=== PATIENT | female | born 1950 | race Caucasian/White ===

== ENCOUNTER 2020-07-28 05:31 | Emergency (ER) | payer MEDICARE ==
[~2020-07-28] VITALS: Ht 170.2 cm; Wt 59.0 kg
[2020-07-28 05:39] VITALS: BP 133/89
--- NOTE | 2020-07-28 06:20 | NUR ---
Patient unable to give sufficient urine for UA, will try to obtain UA after fluids.
[2020-07-28 06:34] LABS: BASOPHILS % (AUTO) 0.4 % (0-1); EOSINOPHILS % (AUTO) 0.1 % (0-6); HEMOGLOBIN 13.6 g/dl (12.0-16.0); LYMPHOCYTES # (AUTO) 0.9 X10'3 (1.1-4.8); LYMPHOCYTES % (AUTO) 16.9 % (21-51); MEAN CORPUSCULAR HEMOGLOBIN 31.1 PG (27.0-31.0); MEAN CORPUSCULAR HGB CONC 33.9 g/dL (33.0-36.5); MEAN CORPUSCULAR VOLUME 91.9 FL (78-98); MEAN PLATELET VOLUME 9.1 FL (7.4-10.4); MONOCYTES # (AUTO) 0.3 X10'3 (0-0.9); MONOCYTES % (AUTO) 5.6 % (2-12); NEUTROPHILS # (AUTO) 4.1 X10'3 (1.8-7.7); PLATELET COUNT 167 X10'3 (140-440); RED BLOOD COUNT 4.36 X10'6 (4.20-5.60); RED CELL DISTRIBUTION WIDTH 13.4 % (11.5-14.5); WHITE BLOOD COUNT 5.4 X10'3 (4.5-11.0)
[2020-07-28 06:54] LABS: ALANINE AMINOTRANSFERASE 33 U/L (12-78); ALBUMIN 3.4 G/DL (3.4-5.0); ALBUMIN/GLOBULIN RATIO 0.7 (1.1-1.5); ALKALINE PHOSPHATASE 85 IU/L (46-116); ANION GAP 10 (8-16); ASPARTATE AMINO TRANSFERASE 56 U/L (10-37); BILIRUBIN,TOTAL 0.5 MG/DL (0.1-1.0); BLOOD UREA NITROGEN 11 MG/DL (7-18); BUN/CREATININE RATIO 13.8 (6.6-38.0); CHLORIDE 97 MMOL/L (99-107); GLUCOSE 109 MG/DL (70-104); POTASSIUM 4.1 MMOL/L (3.5-5.1); SODIUM 133 MMOL/L (135-145); TOTAL CARBON DIOXIDE 25.8 MMOL/L (24-32); eGFR 71 ML/MIN
[2020-07-28 07:54] LABS: CLARITY,URINE CLOUDY (Clear); COLOR,URINE YELLOW (Yellow); GLUCOSE, URINE NEGATIVE (Neg); KETONES,URINE NEGATIVE (Neg); LEUKOCYTE ESTERASE ,URINE LARGE (Neg); NITRITES, URINE POSITIVE (Neg); OCCULT BLOOD,URINE SMALL (Neg); PROTEIN,URINE 30 mg/dl (Neg); UROBILINOGEN,URINE 0.2 E.U/dL (0.2-1.0)
[2020-07-28 08:02] LABS: UA COLLECTION TYPE CLN CATCH MIDSTREAM
[2020-07-28 08:05] LABS: SQUAMOUS EPITHELIAL CELL,UR FEW /LPF (FEW); WBC,URINE TNTC /HPF (0-4)
[2020-07-28 08:07] LABS: BACTERIA,URINE 4+ /HPF (Neg)
--- NOTE | 2020-07-28 08:58 | NUR ---
called in rx at [facility] in [place] for macrobid 100mg po bid x 7 days for a total of 14 pills no refill. the pharmacy was closed at this hour, so message was sent.... i will call again after 10:00 am to make sure they got the rx.
== END 2020-07-28 08:06 | disposition home or self-care (01) ==
LOC: ER 05:32
DX: U07.1 COVID-19 (principal); M54.5 Low back pain
CPT/HCPCS: 36415; 80053; 81001; 85025; 87088; 87186; 87635; 99283; C9803; 87077